=== PATIENT | male | born 1970 | race Caucasian/White ===

== ENCOUNTER 2024-04-28 10:20 | Emergency (ER) | payer OTHER ==
[~2024-04-28] VITALS: Ht 180.3 cm; Wt 115.4 kg
[2024-04-28] MEDS ORDERED: LISINOPRIL20 MG PO (10:42)
[2024-04-28] MEDS ORDERED: ESCITALOPRAM OX10 MG PO (10:43)
[2024-04-28] MEDS ORDERED: ANALPRAM HC PR (10:44)
[2024-04-28] MEDS ORDERED: ondansetron HCL 4 MG/2 ML VIAL IV ONE ×2 (10:45→12:30)
[2024-04-28] MEDS ORDERED: LACTATED RINGER'S 1,000 ML IV ONE (10:45)
[2024-04-28] MEDS ORDERED: HYDROmorphone HCL 1 MG/ML SYR IV ONE ×2 (10:45→12:30)
[2024-04-28] MEDS ORDERED: PRAZOSIN HCL5 MG PO (10:45)
[2024-04-28] MEDS ORDERED: ROSUVASTATIN CA40 MG PO (10:46)
[2024-04-28] MEDS ORDERED: ALLERGY RELIE15.8 ML NS (10:47)
[2024-04-28] MEDS ORDERED: VITAMIN D21250 MCG PO (10:48)
[2024-04-28] MEDS ORDERED: METFORMIN HCL500 MG PO (10:48)
[2024-04-28] MEDS ORDERED: ARIPIPRAZOLE2 MG PO (10:49)
[2024-04-28] MEDS ORDERED: VITAMIN B COMP1 EAC1 PO (10:49)
[2024-04-28] MEDS ORDERED: FENOFIBRATE145 MG PO (10:49)
[2024-04-28 10:50] LABS: BASOPHILS 0.7 % (0-2); EOSINOPHILS 0.5 % (0-6); HEMATOCRIT 38.9 % (35.0-50.0); HEMOGLOBIN 13.4 g/dL (12.0-18.0); LYMPHOCYTES 21.1 % (24-44); MCH 32.4 (27-36); MCHC 34.3 g/dl (30-36); MCV 94.2 fl (81-99); MONOCYTES 6.5 % (0-12); NEUTROPHILS 71.2 % (39-80); PLATELET COUNT 287 K/uL (140-440); RBC 4.13 M/ul (4.3-5.7)
[2024-04-28] MEDS ORDERED: VITAMIN B-121000 MC3 PO (10:50)
[2024-04-28] MEDS ORDERED: ZESTRIL20 MG PO (10:53)
[2024-04-28] MEDS ORDERED: HYDROCHLOROTHIA25 MG PO (10:53)
[2024-04-28 11:08] LABS: ALBUMIN 4.2 g/dL (3.4-5.0); ALBUMIN/GLOBULIN RATIO 0.98 (1.1-2.4); ALCOHOL, MEDICAL <3 ng/dL (<3); ALKALINE PHOSPHATASE 85 U/L (46-116); ALT (SGPT) 79 U/L (14-59); ANION GAP 12.7 (7-21); AST (SGOT) 81 U/L (15-37); BILIRUBIN, TOTAL 0.9 ng/dL (0.2-1.0); CALCIUM 9.9 mg/dL (8.5-10.1); CARBON DIOXIDE 27 mmol/L (21-32); CHLORIDE 93 mmol/L (98-107); CREATINE KINASE 3298 U/L (39-308); CREATININE, SERUM 1.24 mg/dL (0.70-1.30); GLOMERULAR FILTRATION RATE,EST 70 mL/min (>60); POTASSIUM 3.7 mmol/L (3.5-5.1); PROTEIN, TOTAL 8.5 g/dL (6.4-8.2); UREA NITROGEN 17 mg/dL (7-18)
[2024-04-28 11:57] LABS: ABO A; ANTIBODY SCREEN NEGATIVE; RH POSITIVE
[2024-04-28 12:21] LABS: BILIRUBIN, URINE NEGATIVE (negative); BLOOD/HGB, URINE NEGATIVE (Negative); KETONE, URINE NEGATIVE (Negative); LEUK ESTERASE, URINE NEGATIVE (negative); NITRITE, URINE NEGATIVE (negative); PH, URINE 5.5 (5-7)
[2024-04-28 12:36] LABS: AMPHETAMINES, URINE NEGATIVE (NEGATIVE); BARBITURATES, URINE NEGATIVE (NEGATIVE); BENZODIAZEPINE, URINE NEGATIVE (NEGATIVE); BUPRENORPHINE, URINE NEGATIVE (NEGATIVE); CANNABINOID, URINE NEGATIVE (NEGATIVE); COCAINE, URINE NEGATIVE (NEGATIVE); ECSTASY, URINE NEGATIVE (NEGATIVE); FENTANYL, URINE NEGATIVE (NEGATIVE); METHADONE, URINE NEGATIVE (NEGATIVE); OPIATES, URINE NEGATIVE (NEGATIVE); OXYCODONE, URINE NEGATIVE (NEGATIVE); PHENCYCLIDINE, URINE NEGATIVE (NEGATIVE)
[2024-04-28] MEDS ORDERED: LIDODERM1 EACH TOP (12:59)
[2024-04-28] MEDS ORDERED: PERCOCET 5-3251 EACH PO (12:59)
[2024-04-28] MEDS ORDERED: CYCLOBENZAPRINE10 MG PO (12:59)
[2024-04-28 13:13] VITALS: BP 137/82
== END 2024-04-28 13:17 | disposition home or self-care (01) ==
LOC: ED 10:20
PROVIDERS: Emergency Medicine
DX: S12.600A Unspecified displaced fracture of seventh cervical vertebra, initial encounter for closed fracture (principal); S20.222A Contusion of left back wall of thorax, initial encounter; S09.90XA Unspecified injury of head, initial encounter; W13.1XXA Fall from, out of or through bridge, initial encounter; Z88.5 Allergy status to narcotic agent; Z79.899 Other long term (current) drug therapy; Z79.84 Long term (current) use of oral hypoglycemic drugs
CPT/HCPCS: 36415; 70450; 71260; 72125; 74177; 80053; 80307; 81003; 82553; 83605; 85025; 86850; 86900; 86901; 96375; 96376; 99284-25; G0480; J1170; J2405; J7121; Q9967